=== PATIENT | male | born 1970 | race Hispanic/Latino ===

== ENCOUNTER 2017-04-10 06:40 | Day surgery (SDC) | payer OTHER ==
[2017-04-10 07:05] VITALS: BMI 24.6
[2017-04-10] MEDS ORDERED: Midazolam 2 MG/2 ML VIAL ONE (09:12)
[2017-04-10] MEDS ORDERED: Propofol 10 mg/ml Inj (20 ML) ONE (09:12)
[2017-04-10 10:00] VITALS: TEMP 98
[2017-04-10 11:07] VITALS: BP 112/72; PULSE 76; RESP 18; O2SAT 98
== END 2017-04-10 11:05 | disposition home or self-care (01) ==
LOC: C.ENDO 06:40
PROVIDERS: ATTEND Internal Medicine
DX: K63.5 Polyp of colon (principal); K52.9 Noninfective gastroenteritis and colitis, unspecified; K92.1 Melena; K64.8 Other hemorrhoids
CPT/HCPCS: 45380; 45385; 88305; J2250; J2704